=== PATIENT | female | born 1995 | race American Indian/Alaskan Native ===

== ENCOUNTER 2017-10-17 10:50 | Outpatient (CLI) | payer OTHER ==
[2017-10-20] MEDS ORDERED: [UNRECOGNIZED DRUG - OTHER] SUBCUTANEO ×2 (06:17→06:19)
[2017-10-20] MEDS ORDERED: [UNRECOGNIZED DRUG - OTHER] SUBCUTANEO (06:20)
[2017-10-20] MEDS ORDERED: PRENATAL FORMU1 EAC1 PO (06:21)
[2017-10-20] MEDS ORDERED: INTEGRA CAPSUL1 EACH PO (06:22)
== END 2017-10-17 12:38 | disposition home or self-care (01) ==
LOC: NST 10:50
DX: O36.8130 Decreased fetal movements, third trimester, not applicable or unspecified (principal); Z34.03 Encounter for supervision of normal first pregnancy, third trimester